=== PATIENT | female | born 1980 | race Caucasian/White ===

== ENCOUNTER → 2018-06-10 | Outpatient (CLI) | payer MEDICARE, OTHER | END | disposition home or self-care (01) | LOC: VAS 10:14 | DX: R22.31 Localized swelling, mass and lump, right upper limb (principal) | CPT/HCPCS: 93971 ==

== ENCOUNTER 2018-11-15 15:13 | Inpatient (IN) | payer MEDICARE, OTHER ==
[2018-11-15 18:52] LABS: WHITE BLOOD COUNT 2.1 10^3/ul (4.8-10.8)
[2018-11-15 18:52] LABS: ABNORMAL IP MESSAGE 1; HEMATOCRIT 23.5 % (37.0-47.0); HEMOGLOBIN 7.5 g/dl (12.0-16.0); MEAN CORPUSCULAR HEMOGLOBIN 29.4 pg (29.0-33.0); MEAN CORPUSCULAR HGB CONC 31.9 g/dl (32.0-37.0); MEAN CORPUSCULAR VOLUME 92.2 fl (82.0-101.0); NUCLEATED RED BLOOD CELLS% 1.4 /100WBC (0.0-0.0); PLATELET COUNT 54 10^3/UL (140-415); RED BLOOD COUNT 2.55 10^6/ul (4.20-5.40); RED CELL DISTRIBUTION WIDTH 15.1 % (11.5-14.5)
[2018-11-15 19:01] LABS: ADD MAN DIFF? YES; POSITIVE DIFF @See below
[2018-11-15] MEDS: AZITHROMYCIN 500MG/NS (PMX) 250 ML IVPB ×2 (19:03→23:59)
[2018-11-15] MEDS: CEFTRIAXONE 1 GM/50 ML (PMX) 50 ML IVPB (19:03)
[2018-11-15] MEDS: IBUPROFEN 600 MG TAB PO (19:03)
[2018-11-15] MEDS: SODIUM CHLORIDE 0.9% 1L BAG IV* (19:04)
[2018-11-15 19:11] LABS: ALANINE AMINOTRANSFERASE 32 IU/L (13-69); ALBUMIN 3.3 g/dl (3.3-4.9); ALBUMIN/GLOBULIN RATIO 1.06; ALKALINE PHOSPHATASE 49 IU/L (42-121); ANION GAP 11 (5-13); ASPARTATE AMINO TRANSFERASE 31 IU/L (15-46); BILIRUBIN,INDIRECT 0.2 mg/dl (0-1.1); BILIRUBIN,TOTAL 0.2 mg/dl (0.2-1.3); BLOOD UREA NITROGEN 20 mg/dl (7-20); CARBON DIOXIDE 26 mmol/L (21-31); CHLORIDE 104 mmol/L (97-110); CREATININE 1.68 mg/dl (0.44-1.00); Estimated GFR 34 mL/min (>60); GLUCOSE 112 mg/dl (70-220); LIPASE 75 U/L (23-300); SODIUM 141 mmol/L (135-144); TOTAL PROTEIN 6.4 g/dl (6.1-8.1)
[2018-11-15 19:12] LABS: INR 1.28; POTASSIUM 2.9 mmol/L (3.5-5.1); PROTIME 16.1 Sec (11.9-14.9); PT RATIO 1.3
[2018-11-15 19:13] LABS: PARTIAL THROMBOPLASTIN TIME 45.4 Sec (23.0-35.0)
[2018-11-15 19:22] LABS: TROPONIN-I 0.022 ng/ml (0.000-0.120)
[2018-11-15 19:46] LABS: ANISOCYTOSIS 1+ (0-0); ERYTHROBLAST% (NRBC) (M) 3 % (0-0); GIANT THROMBO% (M) 8 % (0-0); LYMPHOCYTES #M 1.4 10^3/ul (0.8-2.9); LYMPHOCYTES % (M) 69 % (15-51); MICROCYTOSIS 1+ (0-0); PLATELET ESTIMATE DECREASED; POIKILOCYTOSIS 1+ (0-0); POLYCHROMASIA 3+ (0-0); SEGMENTED NEUTROPHILS (M) % 31 % (39-77); SMUDGE%M 5 % (0-0)
[2018-11-15 20:59] LABS: ADD UMIC NO; UR ASCORBIC ACID NEGATIVE (NEGATIVE); UR BACTERIA FEW /HPF (NONE SEEN); UR BILIRUBIN (Dip) NEGATIVE (NEGATIVE); UR BLOOD (Dip) NEGATIVE (NEGATIVE); UR CLARITY SLIGHTLY CLOUDY (CLEAR); UR COLOR AMBER (YELLOW); UR GLUCOSE (Dip) NEGATIVE (NEGATIVE); UR KETONES (Dip) NEGATIVE (NEGATIVE); UR LEUKOCYTE ESTERASE (Dip) NEGATIVE Leu/ul (NEGATIVE); UR NITRITE (Dip) NEGATIVE (NEGATIVE); UR RBC 1 /HPF (0-5); UR SPECIFIC GRAVITY (Dip) 1.015 (1.003-1.030); UR SQUAMOUS EPITHELIAL CELL FEW /HPF (FEW); UR TOTAL PROTEIN (Dip) NEGATIVE (NEGATIVE); UR UROBILINOGEN (Dip) NEGATIVE (NEGATIVE); UR WBC 6 /HPF (0-5)
[2018-11-15] MEDS: POTASSIUM CHLORIDE 100 ML IVPB (21:25)
[2018-11-15 22:04] LABS: LACTIC ACID 1.2 mmol/L (0.5-2.0)
[2018-11-15] MEDS ORDERED: DEXTROMETHORPHAN POLISTIREX PO (22:30)
[2018-11-15] MEDS: ENALAPRIL 2.5 MG TAB PO (23:35)
[2018-11-16] MEDS: POTASSIUM CHLORIDE 100 ML IVPB ×2 (01:46→03:58)
[2018-11-16] MEDS: PANTOPRAZOLE (EC) 40 MG TAB PO (05:05)
[2018-11-16 06:41] LABS: ADD MAN DIFF? NO
[2018-11-16 06:43] LABS: WHITE BLOOD COUNT 2.3 10^3/ul (4.8-10.8)
[2018-11-16 06:43] LABS: ABNORMAL IP MESSAGE 1; EOSINOPHILS # 0.1 10^3/ul (0.0-0.5); EOSINOPHILS % 5.1 % (0.0-7.0); HEMATOCRIT 22.7 % (37.0-47.0); HEMOGLOBIN 7.4 g/dl (12.0-16.0); LYMPHOCYTES % 43.6 % (15.0-51.0); MEAN CORPUSCULAR HEMOGLOBIN 30.1 pg (29.0-33.0); MEAN CORPUSCULAR HGB CONC 32.6 g/dl (32.0-37.0); MEAN CORPUSCULAR VOLUME 92.3 fl (82.0-101.0); MEAN PLATELET VOLUME 12.8 fl (7.4-10.4); MONOCYTE # 0.2 10^3/ul (0.3-0.9); MONOCYTES % 6.8 % (0.0-11.0); NEUTROPHILS % 43.2 % (39.0-77.0); NUCLEATED RED BLOOD CELLS% 1.7 /100WBC (0.0-0.0); RED BLOOD COUNT 2.46 10^6/ul (4.20-5.40)
[2018-11-16 06:48] LABS: POSITIVE DIFF @See below
[2018-11-16 06:49] LABS: PLATELET COUNT 47 10^3/UL (140-415)
[2018-11-16 07:04] LABS: INR 1.24; PROTIME 15.7 Sec (11.9-14.9); PT RATIO 1.2
[2018-11-16 07:04] LABS: LACTIC ACID 1.4 mmol/L (0.5-2.0)
[2018-11-16 07:06] LABS: IRON 26 ug/dl (35-150)
[2018-11-16 07:13] LABS: ALANINE AMINOTRANSFERASE 33 IU/L (13-69); ALBUMIN 2.8 g/dl (3.3-4.9); ALBUMIN/GLOBULIN RATIO 0.93; ALKALINE PHOSPHATASE 46 IU/L (42-121); ANION GAP 8 (5-13); ASPARTATE AMINO TRANSFERASE 29 IU/L (15-46); BLOOD UREA NITROGEN 19 mg/dl (7-20); CALCIUM 8.5 mg/dl (8.4-10.2); CARBON DIOXIDE 27 mmol/L (21-31); CHLORIDE 108 mmol/L (97-110); Estimated GFR 28 mL/min (>60); GLUCOSE 90 mg/dl (70-220); MAGNESIUM 1.3 mg/dl (1.7-2.5); POTASSIUM 3.2 mmol/L (3.5-5.1); SODIUM 143 mmol/L (135-144); TOTAL PROTEIN 5.8 g/dl (6.1-8.1)
[2018-11-16 07:14] LABS: B-TYPE NATRIURETIC PEPTIDE 19600 PG/ML (0-125)
[2018-11-16 07:15] LABS: % IRON SATURATION 12 % SAT (22-52); TOTAL IRON BINDING CAPACITY 212 ug/dl (241-421)
[2018-11-16] MEDS: POTASSIUM CHLORIDE (SR) 8 MEQ CAP PO (08:58)
[2018-11-16] MEDS: POLYETHYLENE GLYCOL 17 GM PACKET PO (09:00)
[2018-11-16] MEDS: LORATADINE 10 MG TAB PO (09:00)
[2018-11-16] MEDS: TRIAMTERENE/HCTZ (37.5/25) TAB PO (09:00)
[2018-11-16 10:15] LABS: ADD UMIC YES; UR ASCORBIC ACID NEGATIVE (NEGATIVE); UR BACTERIA MODERATE /HPF (NONE SEEN); UR BILIRUBIN (Dip) NEGATIVE (NEGATIVE); UR BLOOD (Dip) NEGATIVE (NEGATIVE); UR CLARITY CLOUDY (CLEAR); UR COLOR AMBER (YELLOW); UR GLUCOSE (Dip) NEGATIVE (NEGATIVE); UR KETONES (Dip) NEGATIVE (NEGATIVE); UR LEUKOCYTE ESTERASE (Dip) 1+ Leu/ul (NEGATIVE); UR NITRITE (Dip) NEGATIVE (NEGATIVE); UR RBC 6 /HPF (0-5); UR SPECIFIC GRAVITY (Dip) 1.013 (1.003-1.030); UR SQUAMOUS EPITHELIAL CELL FEW /HPF (FEW); UR TOTAL PROTEIN (Dip) NEGATIVE (NEGATIVE); UR UROBILINOGEN (Dip) NEGATIVE (NEGATIVE); UR WBC 8 /HPF (0-5)
[2018-11-16 10:31] LABS: AMPHETAMINE/METHAMPHETAMINE Negative (NEGATIVE); BARBITURATES Negative (NEGATIVE); BENZODIAZEPINES Negative (NEGATIVE); CANNABINOIDS Negative (NEGATIVE); COCAINE Negative (NEGATIVE); OPIATES Negative (NEGATIVE)
[2018-11-16] MEDS: TAMOXIFEN 10 MG TAB PO (15:49)
[2018-11-16 16:27] LABS: OCCULT BLOOD STOOL NEGATIVE (NEGATIVE)
[2018-11-16] MEDS: MAGNESIUM SULFATE 4 GM/100 ML 100 ML IVPB (16:34)
[2018-11-16] MEDS: FUROSEMIDE 40 MG INJ IV (16:36)
[2018-11-16] MEDS: WARFARIN 1 MG TAB PO ×2 (17:00→18:44)
[2018-11-16 20:03] LABS: TROPONIN-I < 0.012 ng/ml (0.000-0.120)
[2018-11-16] MEDS: SENNA TAB PO (20:11)
[2018-11-16 21:57] LABS: IMMEDIATE SPIN CROSSMATCH 1 3
[2018-11-17 01:25] LABS: TROPONIN-I 0.018 ng/ml (0.000-0.120)
[2018-11-17] MEDS: PANTOPRAZOLE (EC) 40 MG TAB PO (05:11)
[2018-11-17 06:20] LABS: ADD MAN DIFF? NO
[2018-11-17 06:34] LABS: ABNORMAL IP MESSAGE 1; BASOPHILS % 0.4 % (0.0-2.0); EOSINOPHILS # 0.1 10^3/ul (0.0-0.5); EOSINOPHILS % 4.3 % (0.0-7.0); HEMATOCRIT 26.1 % (37.0-47.0); HEMOGLOBIN 8.5 g/dl (12.0-16.0); LYMPHOCYTES % 36.3 % (15.0-51.0); MEAN CORPUSCULAR HEMOGLOBIN 29.1 pg (29.0-33.0); MEAN CORPUSCULAR HGB CONC 32.6 g/dl (32.0-37.0); MEAN CORPUSCULAR VOLUME 89.4 fl (82.0-101.0); MEAN PLATELET VOLUME 12.3 fl (7.4-10.4); MONOCYTE # 0.3 10^3/ul (0.3-0.9); MONOCYTES % 11.2 % (0.0-11.0); NEUTROPHIL # 1.2 10^3/ul (1.6-7.5); NEUTROPHILS % 44.6 % (39.0-77.0); NUCLEATED RED BLOOD CELLS # 0.1 10^3/ul (0.0-0.0); NUCLEATED RED BLOOD CELLS% 2.9 /100WBC (0.0-0.0); PLATELET COUNT 57 10^3/UL (140-415); RED BLOOD COUNT 2.92 10^6/ul (4.20-5.40); RED CELL DISTRIBUTION WIDTH 16.9 % (11.5-14.5)
[2018-11-17 06:34] LABS: WHITE BLOOD COUNT 2.8 10^3/ul (4.8-10.8)
[2018-11-17 06:44] LABS: POSITIVE DIFF @See below
[2018-11-17 06:48] LABS: CHOL/HDL RATIO 3.1 RATIO; HDL CHOLESTEROL 29 mg/dl (34-82); LDL CHOLESTEROL,CALCULATED 42 mg/dl; TRIGLYCERIDES 106 mg/dl (0-149)
[2018-11-17 06:48] LABS: CHOLESTEROL 92 mg/dl (100-200)
[2018-11-17 06:59] LABS: ANION GAP 6 (5-13); BLOOD UREA NITROGEN 20 mg/dl (7-20); CALCIUM 8.5 mg/dl (8.4-10.2); CARBON DIOXIDE 26 mmol/L (21-31); CHLORIDE 109 mmol/L (97-110); CREATININE 2.11 mg/dl (0.44-1.00); Estimated GFR 27 mL/min (>60); GLUCOSE 83 mg/dl (70-220); POTASSIUM 3.4 mmol/L (3.5-5.1); SODIUM 141 mmol/L (135-144)
[2018-11-17] MEDS: POLYETHYLENE GLYCOL 17 GM PACKET PO (09:02)
[2018-11-17] MEDS: FUROSEMIDE 40 MG INJ IV (09:02)
[2018-11-17] MEDS: POTASSIUM CHLORIDE (SR) 8 MEQ CAP PO (09:03)
[2018-11-17] MEDS: LORATADINE 10 MG TAB PO (09:03)
[2018-11-17] MEDS: APIXABAN 5 MG TABLET PO ×2 (09:03→20:34)
[2018-11-17] MEDS: TAMOXIFEN 10 MG TAB PO (09:19)
[2018-11-17] MEDS: TRIAMTERENE/HCTZ (37.5/25) TAB PO (10:49)
[2018-11-17 10:50] LABS: AADO2 Arterial 44.3 mmHg (7.0-24.0); Allen Test ACCEPTAB; Arterial Base Excess -1.3 mmol/L (-3.0-3); Arterial Blood Gas Oxygen Sat 90.3 mmHG (95.0-98.0); Arterial COHb 0.3 % (0.0-3.0); Arterial Fraction of Oxyhgb 89.8 % (93.0-99.0); Arterial HCO3 23.2 mmol/L (22.0-26.0); Arterial MetHb 0.3 % (0.0-1.5); Arterial pCO2 37.8 mmhg (35-45); MODE ROOM AIR; Site Left Radial
[2018-11-17] MEDS ORDERED: VANCOMYCIN IV PER PHARMACY XX (12:30)
[2018-11-17] MEDS: CEFEPIME 1GM/50 ML (PMX) 50 ML IVPB ×2 (13:10→20:32)
[2018-11-17] MEDS ORDERED: LIDOCAINE 1% (MDV) 20 ML INJ (14:04)
[2018-11-17] MEDS: VANCOMYCIN HCL 2 GM in SOD CHLORIDE 0.9% 500 ML IVPB (15:31)
[2018-11-17] MEDS: POTASSIUM CHLORIDE 20 MEQ POWDER FOR ORAL SOLN PO (16:54)
[2018-11-17] MEDS: GUAIFENESIN 20 MG/ML 5ML CUP PO (17:50)
[2018-11-17] MEDS: SENNA TAB PO (20:33)
[2018-11-17] MEDS: ALBUTEROL/IPRATROPIUM (NEB) 3 ML AMP HHN (23:27)
[2018-11-17] MEDS: ACETYLCYSTEINE 20% 4 ML VIAL NEB (23:27)
[2018-11-18] MEDS: GUAIFENESIN 20 MG/ML 5ML CUP PO ×2 (00:58→16:29)
[2018-11-18] MEDS: VANCOMYCIN HCL 1.5 GM in SOD CHLORIDE 0.9% 250 ML IVPB (04:10)
[2018-11-18] MEDS: PANTOPRAZOLE (EC) 40 MG TAB PO (05:46)
[2018-11-18 06:11] LABS: ABNORMAL IP MESSAGE 1; HEMATOCRIT 29.5 % (37.0-47.0); HEMOGLOBIN 9.8 g/dl (12.0-16.0); MEAN CORPUSCULAR HEMOGLOBIN 29.3 pg (29.0-33.0); MEAN CORPUSCULAR HGB CONC 33.2 g/dl (32.0-37.0); MEAN CORPUSCULAR VOLUME 88.1 fl (82.0-101.0); MEAN PLATELET VOLUME 11.2 fl (7.4-10.4); NUCLEATED RED BLOOD CELLS% 2.1 /100WBC (0.0-0.0); RED BLOOD COUNT 3.35 10^6/ul (4.20-5.40); RED CELL DISTRIBUTION WIDTH 16.9 % (11.5-14.5)
[2018-11-18 06:11] LABS: WHITE BLOOD COUNT 3.8 10^3/ul (4.8-10.8)
[2018-11-18 06:27] LABS: ADD MAN DIFF? YES; PLATELET COUNT 98 10^3/UL (140-415); POSITIVE DIFF @See below
[2018-11-18 06:49] LABS: IRON 57 ug/dl (35-150)
[2018-11-18 06:54] LABS: ALANINE AMINOTRANSFERASE 33 IU/L (13-69); ALBUMIN 2.7 g/dl (3.3-4.9); ALKALINE PHOSPHATASE 51 IU/L (42-121); ANION GAP 1 (5-13); ASPARTATE AMINO TRANSFERASE 45 IU/L (15-46); BILIRUBIN,INDIRECT 0.5 mg/dl (0-1.1); BILIRUBIN,TOTAL 0.5 mg/dl (0.2-1.3); BLOOD UREA NITROGEN 17 mg/dl (7-20); CALCIUM 8.5 mg/dl (8.4-10.2); CARBON DIOXIDE 26 mmol/L (21-31); CHLORIDE 115 mmol/L (97-110); CREATININE 1.74 mg/dl (0.44-1.00); Estimated GFR 33 mL/min (>60); GLUCOSE 84 mg/dl (70-220); MAGNESIUM 1.7 mg/dl (1.7-2.5); POTASSIUM 3.9 mmol/L (3.5-5.1); SODIUM 142 mmol/L (135-144); TOTAL PROTEIN 5.7 g/dl (6.1-8.1)
[2018-11-18 06:58] LABS: % IRON SATURATION 27 % SAT (22-52); TOTAL IRON BINDING CAPACITY 208 ug/dl (241-421)
[2018-11-18] MEDS: ALBUTEROL/IPRATROPIUM (NEB) 3 ML AMP HHN ×2 (08:31→20:54)
[2018-11-18] MEDS: CEFEPIME 1GM/50 ML (PMX) 50 ML IVPB ×2 (08:46→20:26)
[2018-11-18] MEDS: LORATADINE 10 MG TAB PO (08:46)
[2018-11-18] MEDS: POLYETHYLENE GLYCOL 17 GM PACKET PO (08:47)
[2018-11-18] MEDS: APIXABAN 5 MG TABLET PO ×2 (08:47→20:26)
[2018-11-18] MEDS: FUROSEMIDE 40 MG INJ IV (08:47)
[2018-11-18] MEDS: POTASSIUM CHLORIDE (SR) 8 MEQ CAP PO (08:47)
[2018-11-18] MEDS: TAMOXIFEN 10 MG TAB PO (09:50)
[2018-11-18] MEDS: MAGNESIUM SULFATE 2 GM/50 ML 50 ML IVPB (12:03)
[2018-11-18] MEDS: TRIAMTERENE/HCTZ (37.5/25) TAB PO (12:52)
[2018-11-18] MEDS ORDERED: VANCOMYCIN HCL 1.5 GM in SOD CHLORIDE 0.9% 250 ML IVPB (14:00)
[2018-11-18] MEDS: SENNA TAB PO (20:27)
[2018-11-19] MEDS: VANCOMYCIN HCL 1.5 GM in SOD CHLORIDE 0.9% 250 ML IVPB (03:54)
[2018-11-19] MEDS: PANTOPRAZOLE (EC) 40 MG TAB PO (05:25)
[2018-11-19] MEDS: KETOCONAZOLE 2% 15 GM CR TOP ×2 (09:00→20:36)
[2018-11-19] MEDS: CEFEPIME 1GM/50 ML (PMX) 50 ML IVPB (09:04)
[2018-11-19] MEDS: FUROSEMIDE 40 MG INJ IV (09:04)
[2018-11-19] MEDS: TAMOXIFEN 10 MG TAB PO (09:06)
[2018-11-19] MEDS: POTASSIUM CHLORIDE (SR) 8 MEQ CAP PO (09:08)
[2018-11-19] MEDS: LORATADINE 10 MG TAB PO (09:08)
[2018-11-19] MEDS: APIXABAN 5 MG TABLET PO ×2 (09:08→20:36)
[2018-11-19] MEDS: POLYETHYLENE GLYCOL 17 GM PACKET PO (09:09)
[2018-11-19] MEDS: TRIAMTERENE/HCTZ (37.5/25) TAB PO (09:15)
[2018-11-19] MEDS: MAGNESIUM SULFATE 2 GM/50 ML 50 ML IVPB (09:16)
[2018-11-19] MEDS: ONDANSETRON 4 MG TAB PO (09:20)
[2018-11-19] MEDS: ALBUTEROL/IPRATROPIUM (NEB) 3 ML AMP HHN ×2 (09:22→19:56)
[2018-11-19 13:44] LABS: BLOOD UREA NITROGEN 16 mg/dl (7-20)
[2018-11-19 13:44] LABS: CREATININE 1.45 mg/dl (0.44-1.00)
[2018-11-19] MEDS: DOXYCYCLINE 100 MG in SOD CHLORIDE 0.9% 250 ML IVPB (15:36)
[2018-11-19] MEDS: SENNA TAB PO (20:36)
[2018-11-19] MEDS ORDERED: morphine 4 MG/ML VIAL IV (23:00)
[2018-11-19] MEDS: NITROGLYCERIN (SL) 0.4 MG TAB SL (23:25)
[2018-11-19] MEDS: ASPIRIN 81 MG TAB PO (23:26)
[2018-11-19] MEDS: ATORVASTATIN 40 MG TAB PO (23:26)
[2018-11-19 23:34] LABS: D-DIMER 3193.31 ng/ml (<460)
[2018-11-19 23:44] LABS: TROPONIN-I < 0.012 ng/ml (0.000-0.120)
[2018-11-20] MEDS ORDERED: PENDING SANTYL ORDER FOR WOUND CARE XX (01:00)
[2018-11-20] MEDS: PANTOPRAZOLE (EC) 40 MG TAB PO (06:29)
[2018-11-20 06:37] LABS: ADD MAN DIFF? NO
[2018-11-20 06:41] LABS: EOSINOPHILS # 0.1 10^3/ul (0.0-0.5); EOSINOPHILS % 0.9 % (0.0-7.0); HEMOGLOBIN 10.3 g/dl (12.0-16.0); LYMPHOCYTES # 0.9 10^3/ul (0.8-2.9); LYMPHOCYTES % 16.1 % (15.0-51.0); MEAN CORPUSCULAR HEMOGLOBIN 28.7 pg (29.0-33.0); MEAN CORPUSCULAR HGB CONC 32.2 g/dl (32.0-37.0); MEAN CORPUSCULAR VOLUME 89.1 fl (82.0-101.0); MEAN PLATELET VOLUME 11.5 fl (7.4-10.4); MONOCYTES % 19.1 % (0.0-11.0); NEUTROPHIL # 3.4 10^3/ul (1.6-7.5); NEUTROPHILS % 62.1 % (39.0-77.0); NUCLEATED RED BLOOD CELLS # 0.1 10^3/ul (0.0-0.0); NUCLEATED RED BLOOD CELLS% 2.2 /100WBC (0.0-0.0); PLATELET COUNT 255 10^3/UL (140-415); RED BLOOD COUNT 3.59 10^6/ul (4.20-5.40); RED CELL DISTRIBUTION WIDTH 16.4 % (11.5-14.5)
[2018-11-20 06:41] LABS: WHITE BLOOD COUNT 5.5 10^3/ul (4.8-10.8)
[2018-11-20 07:27] LABS: ALANINE AMINOTRANSFERASE 28 IU/L (13-69); ALBUMIN 2.8 g/dl (3.3-4.9); ALKALINE PHOSPHATASE 55 IU/L (42-121); ANION GAP 7 (5-13); ASPARTATE AMINO TRANSFERASE 40 IU/L (15-46); BILIRUBIN,INDIRECT 0.7 mg/dl (0-1.1); BILIRUBIN,TOTAL 0.7 mg/dl (0.2-1.3); BLOOD UREA NITROGEN 16 mg/dl (7-20); CALCIUM 9.2 mg/dl (8.4-10.2); CARBON DIOXIDE 27 mmol/L (21-31); CHLORIDE 103 mmol/L (97-110); CREATININE 1.37 mg/dl (0.44-1.00); Estimated GFR 44 mL/min (>60); GLUCOSE 75 mg/dl (70-220); POTASSIUM 4.2 mmol/L (3.5-5.1); SODIUM 137 mmol/L (135-144); TOTAL PROTEIN 5.6 g/dl (6.1-8.1)
[2018-11-20 07:33] LABS: TROPONIN-I < 0.012 ng/ml (0.000-0.120)
[2018-11-20] MEDS: ALBUTEROL/IPRATROPIUM (NEB) 3 ML AMP HHN ×2 (08:03→20:36)
[2018-11-20] MEDS: FUROSEMIDE 40 MG INJ IV ×2 (09:00→09:23)
[2018-11-20] MEDS: DOXYCYCLINE 100 MG in SOD CHLORIDE 0.9% 250 ML IVPB ×4 (09:00→23:34)
[2018-11-20] MEDS: LORATADINE 10 MG TAB PO (09:15)
[2018-11-20] MEDS: KETOCONAZOLE 2% 15 GM CR TOP ×2 (09:15→20:16)
[2018-11-20] MEDS: POLYETHYLENE GLYCOL 17 GM PACKET PO (09:15)
[2018-11-20] MEDS: APIXABAN 5 MG TABLET PO ×2 (09:16→20:14)
[2018-11-20] MEDS: ASPIRIN 81 MG TAB PO (09:16)
[2018-11-20] MEDS: TAMOXIFEN 10 MG TAB PO (09:17)
[2018-11-20] MEDS: TRIAMTERENE/HCTZ (37.5/25) TAB PO (09:18)
[2018-11-20] MEDS: POTASSIUM CHLORIDE (SR) 8 MEQ CAP PO (09:18)
[2018-11-20 11:34] LABS: TROPONIN-I < 0.012 ng/ml (0.000-0.120)
[2018-11-20] MEDS: GUAIFENESIN 20 MG/ML 5ML CUP PO (20:14)
[2018-11-20] MEDS: SENNA TAB PO (20:15)
[2018-11-20] MEDS: ATORVASTATIN 40 MG TAB PO (20:15)
[2018-11-20] MEDS: DICLOFENAC SODIUM 1% GEL 100 GM TUBE TP (20:16)
[2018-11-21] MEDS: PANTOPRAZOLE (EC) 40 MG TAB PO (06:21)
[2018-11-21] MEDS: GUAIFENESIN 20 MG/ML 5ML CUP PO ×2 (06:26→20:48)
[2018-11-21] MEDS: ALBUTEROL/IPRATROPIUM (NEB) 3 ML AMP HHN ×2 (07:45→20:00)
[2018-11-21] MEDS: DOXYCYCLINE 100 MG in SOD CHLORIDE 0.9% 250 ML IVPB ×2 (08:55→20:41)
[2018-11-21] MEDS: ASPIRIN 81 MG TAB PO (08:55)
[2018-11-21] MEDS: LORATADINE 10 MG TAB PO (08:55)
[2018-11-21] MEDS: APIXABAN 5 MG TABLET PO ×2 (08:56→20:38)
[2018-11-21] MEDS: POLYETHYLENE GLYCOL 17 GM PACKET PO (08:56)
[2018-11-21] MEDS: POTASSIUM CHLORIDE (SR) 8 MEQ CAP PO (08:56)
[2018-11-21] MEDS: TRIAMTERENE/HCTZ (37.5/25) TAB PO (08:58)
[2018-11-21] MEDS: TAMOXIFEN 10 MG TAB PO (09:08)
[2018-11-21] MEDS: KETOCONAZOLE 2% 15 GM CR TOP ×2 (09:13→20:39)
[2018-11-21] MEDS: DICLOFENAC SODIUM 1% GEL 100 GM TUBE TP ×2 (09:13→20:39)
[2018-11-21] MEDS: ONDANSETRON INJ 8 MG in DEXTROSE 5% 50 ML IV (19:02)
[2018-11-21] MEDS: ATORVASTATIN 40 MG TAB PO (20:37)
[2018-11-21] MEDS: SENNA TAB PO (20:37)
[2018-11-22] MEDS: PANTOPRAZOLE (EC) 40 MG TAB PO (05:17)
[2018-11-22] MEDS: GUAIFENESIN 20 MG/ML 5ML CUP PO (05:21)
[2018-11-22] MEDS: ACETAMINOPHEN 325 MG TAB PO (05:21)
[2018-11-22] MEDS: ALBUTEROL/IPRATROPIUM (NEB) 3 ML AMP HHN ×3 (09:22→22:30)
[2018-11-22] MEDS: DOXYCYCLINE 100 MG in SOD CHLORIDE 0.9% 250 ML IVPB (09:29)
[2018-11-22] MEDS: APIXABAN 5 MG TABLET PO ×2 (09:30→20:26)
[2018-11-22] MEDS: TRIAMTERENE/HCTZ (37.5/25) TAB PO (09:32)
[2018-11-22] MEDS: POLYETHYLENE GLYCOL 17 GM PACKET PO (09:32)
[2018-11-22] MEDS: POTASSIUM CHLORIDE (SR) 8 MEQ CAP PO (09:32)
[2018-11-22] MEDS: LORATADINE 10 MG TAB PO (09:33)
[2018-11-22] MEDS: KETOCONAZOLE 2% 15 GM CR TOP ×2 (09:37→20:27)
[2018-11-22] MEDS: BALSAM PERU/CASTOR OIL 60 GM TUBE TOP (09:37)
[2018-11-22] MEDS: DICLOFENAC SODIUM 1% GEL 100 GM TUBE TP ×2 (09:38→20:26)
[2018-11-22] MEDS: TAMOXIFEN 10 MG TAB PO (09:48)
[2018-11-22] MEDS: SENNA TAB PO (20:26)
[2018-11-22] MEDS: ATORVASTATIN 40 MG TAB PO (20:26)
[2018-11-22] MEDS: DOXYCYCLINE 100 MG TAB PO (22:47)
[2018-11-23] MEDS: PANTOPRAZOLE (EC) 40 MG TAB PO (05:16)
[2018-11-23] MEDS: ALBUTEROL/IPRATROPIUM (NEB) 3 ML AMP HHN ×5 (08:00→23:30)
[2018-11-23] MEDS: DOXYCYCLINE 100 MG TAB PO ×2 (08:55→20:41)
[2018-11-23] MEDS: POLYETHYLENE GLYCOL 17 GM PACKET PO (08:55)
[2018-11-23] MEDS: POTASSIUM CHLORIDE (SR) 8 MEQ CAP PO (08:57)
[2018-11-23] MEDS: TRIAMTERENE/HCTZ (37.5/25) TAB PO (08:58)
[2018-11-23] MEDS: APIXABAN 5 MG TABLET PO ×2 (08:58→20:41)
[2018-11-23] MEDS: LORATADINE 10 MG TAB PO (08:58)
[2018-11-23] MEDS: KETOCONAZOLE 2% 15 GM CR TOP ×2 (08:59→20:54)
[2018-11-23] MEDS: BALSAM PERU/CASTOR OIL 60 GM TUBE TOP (08:59)
[2018-11-23] MEDS: DICLOFENAC SODIUM 1% GEL 100 GM TUBE TP ×2 (08:59→20:54)
[2018-11-23] MEDS: TAMOXIFEN 10 MG TAB PO (09:29)
[2018-11-23] MEDS: SENNA TAB PO (20:40)
[2018-11-23] MEDS: ATORVASTATIN 40 MG TAB PO (20:41)
[2018-11-23 23:23] LABS: AADO2 Arterial 13.3 mmHg (7.0-24.0); Allen Test ACCEPTAB; Arterial Base Excess 0.4 mmol/L (-3.0-3); Arterial Blood Gas Oxygen Sat 97.3 mmHG (95.0-98.0); Arterial COHb 0.3 % (0.0-3.0); Arterial Fraction of Oxyhgb 96.8 % (93.0-99.0); Arterial HCO3 23.8 mmol/L (22.0-26.0); Arterial MetHb 0.2 % (0.0-1.5); Arterial pCO2 33.9 mmhg (35-45); MODE ROOM AIR; Site Left Radial
[2018-11-24] MEDS: PANTOPRAZOLE (EC) 40 MG TAB PO (05:54)
[2018-11-24] MEDS: ALBUTEROL/IPRATROPIUM (NEB) 3 ML AMP HHN ×4 (08:31→20:00)
[2018-11-24] MEDS: DOXYCYCLINE 100 MG TAB PO (08:47)
[2018-11-24] MEDS: APIXABAN 5 MG TABLET PO (08:47)
[2018-11-24] MEDS: TAMOXIFEN 10 MG TAB PO (08:50)
[2018-11-24] MEDS: FUROSEMIDE 20 MG TAB PO (08:52)
[2018-11-24] MEDS: LORATADINE 10 MG TAB PO (08:52)
[2018-11-24] MEDS: POTASSIUM CHLORIDE (SR) 8 MEQ CAP PO (08:52)
[2018-11-24] MEDS: KETOCONAZOLE 2% 15 GM CR TOP (08:53)
[2018-11-24] MEDS: BALSAM PERU/CASTOR OIL 60 GM TUBE TOP (08:53)
[2018-11-24] MEDS: POLYETHYLENE GLYCOL 17 GM PACKET PO (08:53)
[2018-11-24] MEDS: DICLOFENAC SODIUM 1% GEL 100 GM TUBE TP (08:53)
[2018-11-24] MEDS: TRIAMTERENE/HCTZ (37.5/25) TAB PO (08:53)
== END 2018-11-24 17:00 | DRG 853 ==
LOC: E/R 15:13 → TEL 11-16 13:31
PROC: 30233N1 Transfusion of Nonautologous Red Blood Cells into Peripheral Vein, Percutaneous Approach (ICD-10-PCS; 2018-11-16)
PROC: 06H03DZ Insertion of Intraluminal Device into Inferior Vena Cava, Percutaneous Approach (ICD-10-PCS; principal; 2018-11-17)
DX: A41.9 Sepsis, unspecified organism (principal); D61.810 Antineoplastic chemotherapy induced pancytopenia; J18.9 Pneumonia, unspecified organism; I50.43 Acute on chronic combined systolic (congestive) and diastolic (congestive) heart failure; T80.211A Bloodstream infection due to central venous catheter, initial encounter; Z68.42 Body mass index [BMI] 45.0-49.9, adult; D62 Acute posthemorrhagic anemia; L03.116 Cellulitis of left lower limb; L03.115 Cellulitis of right lower limb; E66.2 Morbid (severe) obesity with alveolar hypoventilation; I82.431 Acute embolism and thrombosis of right popliteal vein; I82.411 Acute embolism and thrombosis of right femoral vein; I82.442 Acute embolism and thrombosis of left tibial vein; N17.9 Acute kidney failure, unspecified; I13.0 Hypertensive heart and chronic kidney disease with heart failure and stage 1 through stage 4 chronic kidney disease, or unspecified chronic kidney disease; C79.9 Secondary malignant neoplasm of unspecified site; C50.919 Malignant neoplasm of unspecified site of unspecified female breast; Z90.11 Acquired absence of right breast and nipple; J45.909 Unspecified asthma, uncomplicated; R62.50 Unspecified lack of expected normal physiological development in childhood; D63.8 Anemia in other chronic diseases classified elsewhere; H02.402 Unspecified ptosis of left eyelid; Z91.14 Patient's other noncompliance with medication regimen; J06.9 Acute upper respiratory infection, unspecified; B35.1 Tinea unguium; G93.89 Other specified disorders of brain; N18.9 Chronic kidney disease, unspecified; Z79.02 Long term (current) use of antithrombotics/antiplatelets
CPT/HCPCS: 36430; 36600; 70450; 70552; 71045; 73030; 75940; 80048; 80053; 80061; 80307; 81001; 81003; 82270; 82565; 82803; 83540; 83605; 83690; 83735; 83880; 84443; 84484; 84520; 85025; 85378; 85610; 85730; 86850; 86900; 86901; 86920; 87040; 87081; 87086; 87400; 93005; 93306; 93970; 94640; 94664; 95819; 96365; 96368; 97110; 97116; 97162; 97530; 99291-25

== ENCOUNTER 2018-12-20 16:15 | Inpatient (IN) | payer MEDICARE, OTHER ==
[2018-12-20 17:46] LABS: WHITE BLOOD COUNT 4.6 10^3/ul (4.8-10.8)
[2018-12-20 17:46] LABS: ABNORMAL IP MESSAGE 1; HEMATOCRIT 27.5 % (37.0-47.0); HEMOGLOBIN 8.9 g/dl (12.0-16.0); MEAN CORPUSCULAR HEMOGLOBIN 30.1 pg (29.0-33.0); MEAN CORPUSCULAR HGB CONC 32.4 g/dl (32.0-37.0); MEAN CORPUSCULAR VOLUME 92.9 fl (82.0-101.0); MEAN PLATELET VOLUME 12.3 fl (7.4-10.4); NUCLEATED RED BLOOD CELLS% 0.7 /100WBC (0.0-0.0); PLATELET COUNT 93 10^3/UL (140-415); RED BLOOD COUNT 2.96 10^6/ul (4.20-5.40); RED CELL DISTRIBUTION WIDTH 18.9 % (11.5-14.5)
[2018-12-20 17:56] LABS: ADD MAN DIFF? YES; POSITIVE DIFF @See below
[2018-12-20 18:10] LABS: ANION GAP 6 (5-13); BLOOD UREA NITROGEN 15 mg/dl (7-20); CALCIUM 9.1 mg/dl (8.4-10.2); CARBON DIOXIDE 28 mmol/L (21-31); CHLORIDE 107 mmol/L (97-110); CREATININE 1.05 mg/dl (0.44-1.00); Estimated GFR 59 mL/min (>60); GLUCOSE 101 mg/dl (70-220); POTASSIUM 3.5 mmol/L (3.5-5.1); SODIUM 141 mmol/L (135-144)
[2018-12-20 18:20] LABS: B-TYPE NATRIURETIC PEPTIDE 17900 PG/ML (0-125); TROPONIN-I < 0.012 ng/ml (0.000-0.120)
[2018-12-20 18:25] LABS: ETHANOL < 10.0 mg/dl (0-0)
[2018-12-20 18:27] LABS: INR 1.99; PROTIME 22.7 Sec (11.9-14.9); PT RATIO 1.8
[2018-12-20 19:13] LABS: PARTIAL THROMBOPLASTIN TIME 108.5 Sec (23.0-35.0)
[2018-12-20 19:37] LABS: ANISOCYTOSIS 1+ (0-0); BURR CELLS 1+ (0-0); EOSINOPHILS % (M) 2 % (0-7); ERYTHROBLAST% (NRBC) (M) 1 % (0-0); GIANT THROMBO% (M) 1 % (0-0); LYMPHOCYTES #M 0.6 10^3/ul (0.8-2.9); LYMPHOCYTES % (M) 14 % (15-51); MICROCYTOSIS 1+ (0-0); MONOCYTES % (M) 2 % (0-11); OVALOCYTES 1+ (0-0); PLATELET ESTIMATE DECREASED; POIKILOCYTOSIS 1+ (0-0); SEGMENTED NEUTROPHILS (M) % 82 % (39-77); SMUDGE%M 3 % (0-0)
[2018-12-20] MEDS: ENOXAPARIN 60 MG/0.6 ML SYG SC (19:44)
[2018-12-20] MEDS: FUROSEMIDE 20 MG INJ IV (19:47)
[2018-12-20 20:06] LABS: PARTIAL THROMBOPLASTIN TIME 38.6 Sec (23.0-35.0)
[2018-12-20 20:07] LABS: MAGNESIUM 1.5 mg/dl (1.7-2.5)
[2018-12-20 21:11] LABS: DIGOXIN < 0.4 ng/ml (1.0-2.0)
[2018-12-20] MEDS ORDERED: FUROSEMIDE 40 MG INJ IV (22:00)
[2018-12-20] MEDS ORDERED: ACETAMINOPHEN 325 MG TAB PO (22:30)
[2018-12-20] MEDS ORDERED: NITROGLYCERIN (SL) 0.4 MG TAB SL (22:30)
[2018-12-21] MEDS: SPIRONOLACTONE 25 MG TAB PO ×3 (01:37→17:09)
[2018-12-21] MEDS: FUROSEMIDE 20 MG TAB PO (01:37)
[2018-12-21] MEDS: FUROSEMIDE 40 MG TAB PO ×2 (05:58→13:44)
[2018-12-21 07:02] LABS: ADD MAN DIFF? NO
[2018-12-21 07:13] LABS: WHITE BLOOD COUNT 5.4 10^3/ul (4.8-10.8)
[2018-12-21 07:13] LABS: ABNORMAL IP MESSAGE 1; HEMATOCRIT 25.6 % (37.0-47.0); HEMOGLOBIN 8.2 g/dl (12.0-16.0); LYMPHOCYTES # 0.9 10^3/ul (0.8-2.9); MEAN CORPUSCULAR HEMOGLOBIN 29.7 pg (29.0-33.0); MEAN CORPUSCULAR VOLUME 92.8 fl (82.0-101.0); MEAN PLATELET VOLUME 11.6 fl (7.4-10.4); MONOCYTE # 0.3 10^3/ul (0.3-0.9); MONOCYTES % 5.2 % (0.0-11.0); NEUTROPHIL # 4.2 10^3/ul (1.6-7.5); NEUTROPHILS % 77.5 % (39.0-77.0); NUCLEATED RED BLOOD CELLS% 0.7 /100WBC (0.0-0.0); PLATELET COUNT 95 10^3/UL (140-415); RED BLOOD COUNT 2.76 10^6/ul (4.20-5.40); RED CELL DISTRIBUTION WIDTH 18.6 % (11.5-14.5)
[2018-12-21 07:22] LABS: POSITIVE DIFF @See below
[2018-12-21 07:41] LABS: ALANINE AMINOTRANSFERASE 26 IU/L (13-69); ALBUMIN 2.7 g/dl (3.3-4.9); ALKALINE PHOSPHATASE 46 IU/L (42-121); ANION GAP 9 (5-13); ASPARTATE AMINO TRANSFERASE 55 IU/L (15-46); BILIRUBIN,INDIRECT 0.6 mg/dl (0-1.1); BILIRUBIN,TOTAL 0.6 mg/dl (0.2-1.3); BLOOD UREA NITROGEN 16 mg/dl (7-20); CALCIUM 8.7 mg/dl (8.4-10.2); CARBON DIOXIDE 25 mmol/L (21-31); CHLORIDE 109 mmol/L (97-110); CREATININE 1.06 mg/dl (0.44-1.00); Estimated GFR 59 mL/min (>60); GLUCOSE 102 mg/dl (70-220); POTASSIUM 3.7 mmol/L (3.5-5.1); SODIUM 143 mmol/L (135-144); TOTAL PROTEIN 5.7 g/dl (6.1-8.1)
[2018-12-21] MEDS: LORATADINE 10 MG TAB PO (08:45)
[2018-12-21] MEDS: ENOXAPARIN 80 MG/0.8 ML SYG SC (10:17)
[2018-12-21 18:43] LABS: TROPONIN-I 0.017 ng/ml (0.000-0.120)
[2018-12-21] MEDS: NYSTATIN 30 GM POWDER BTL TOP ×2 (21:00→21:52)
[2018-12-21] MEDS: BALSAM PERU/CASTOR OIL 60 GM TUBE TOP ×2 (21:00→21:52)
[2018-12-21] MEDS: SENNA TAB PO (21:52)
[2018-12-21] MEDS: ATORVASTATIN 40 MG TAB PO (21:52)
[2018-12-22] MEDS: FUROSEMIDE 40 MG INJ IV ×2 (05:56→17:46)
[2018-12-22] MEDS: SPIRONOLACTONE 25 MG TAB PO ×2 (05:57→17:46)
[2018-12-22 07:19] LABS: INR 1.31; PROTIME 16.4 Sec (11.9-14.9); PT RATIO 1.3
[2018-12-22 07:31] LABS: TROPONIN-I 0.017 ng/ml (0.000-0.120)
[2018-12-22] MEDS: BALSAM PERU/CASTOR OIL 60 GM TUBE TOP ×2 (09:18→20:46)
[2018-12-22] MEDS: NYSTATIN 30 GM POWDER BTL TOP ×2 (09:18→20:46)
[2018-12-22] MEDS: LORATADINE 10 MG TAB PO (09:19)
[2018-12-22] MEDS: BENAZEPRIL 5 MG TAB PO (09:19)
[2018-12-22] MEDS: ENOXAPARIN 80 MG/0.8 ML SYG SC (09:23)
[2018-12-22 19:18] LABS: CREATINE KINASE 28 IU/L (23-200)
[2018-12-22 19:31] LABS: CK INDEX 1.2; CK-MB 0.33 ng/ml (0.0-2.4); TROPONIN-I 0.012 ng/ml (0.000-0.120)
[2018-12-22] MEDS: SENNA TAB PO (20:45)
[2018-12-22] MEDS: ATORVASTATIN 40 MG TAB PO (20:46)
[2018-12-23] MEDS: SPIRONOLACTONE 25 MG TAB PO ×2 (06:41→18:26)
[2018-12-23] MEDS: FUROSEMIDE 40 MG INJ IV ×2 (06:42→18:26)
[2018-12-23 07:07] LABS: WHITE BLOOD COUNT 3.9 10^3/ul (4.8-10.8)
[2018-12-23 07:07] LABS: ABNORMAL IP MESSAGE 1; HEMATOCRIT 26.2 % (37.0-47.0); HEMOGLOBIN 8.5 g/dl (12.0-16.0); MEAN CORPUSCULAR HEMOGLOBIN 30.6 pg (29.0-33.0); MEAN CORPUSCULAR HGB CONC 32.4 g/dl (32.0-37.0); MEAN CORPUSCULAR VOLUME 94.2 fl (82.0-101.0); MEAN PLATELET VOLUME 11.4 fl (7.4-10.4); NUCLEATED RED BLOOD CELLS% 2.6 /100WBC (0.0-0.0); PLATELET COUNT 170 10^3/UL (140-415); RED BLOOD COUNT 2.78 10^6/ul (4.20-5.40); RED CELL DISTRIBUTION WIDTH 18.9 % (11.5-14.5)
[2018-12-23 07:11] LABS: ADD MAN DIFF? YES; POSITIVE DIFF @See below
[2018-12-23 07:27] LABS: CREATINE KINASE 21 IU/L (23-200)
[2018-12-23 07:35] LABS: CK-MB < 0.22 ng/ml (0.0-2.4); TROPONIN-I 0.013 ng/ml (0.000-0.120)
[2018-12-23 07:38] LABS: ALANINE AMINOTRANSFERASE 43 IU/L (13-69); ALBUMIN 2.4 g/dl (3.3-4.9); ALKALINE PHOSPHATASE 45 IU/L (42-121); ANION GAP 5 (5-13); ASPARTATE AMINO TRANSFERASE 79 IU/L (15-46); BILIRUBIN,INDIRECT 1.1 mg/dl (0-1.1); BILIRUBIN,TOTAL 1.1 mg/dl (0.2-1.3); BLOOD UREA NITROGEN 17 mg/dl (7-20); CALCIUM 8.5 mg/dl (8.4-10.2); CARBON DIOXIDE 31 mmol/L (21-31); CHLORIDE 107 mmol/L (97-110); CREATININE 1.02 mg/dl (0.44-1.00); Estimated GFR > 60 mL/min (>60); GLUCOSE 71 mg/dl (70-220); MAGNESIUM 1.3 mg/dl (1.7-2.5); PHOSPHORUS 3.9 mg/dl (2.5-4.9); POTASSIUM 3.4 mmol/L (3.5-5.1); SODIUM 143 mmol/L (135-144); TOTAL PROTEIN 5.4 g/dl (6.1-8.1)
[2018-12-23 07:40] LABS: CHOL/HDL RATIO 4.4 RATIO; HDL CHOLESTEROL 22 mg/dl (34-82); LDL CHOLESTEROL,CALCULATED 49 mg/dl; TRIGLYCERIDES 134 mg/dl (0-149)
[2018-12-23 07:40] LABS: CHOLESTEROL 98 mg/dl (100-200)
[2018-12-23] MEDS: BENAZEPRIL 5 MG TAB PO (08:36)
[2018-12-23] MEDS: LORATADINE 10 MG TAB PO (08:37)
[2018-12-23] MEDS: BALSAM PERU/CASTOR OIL 60 GM TUBE TOP ×2 (08:37→21:25)
[2018-12-23] MEDS: NYSTATIN 30 GM POWDER BTL TOP ×2 (08:37→21:25)
[2018-12-23] MEDS: ENOXAPARIN 80 MG/0.8 ML SYG SC (08:38)
[2018-12-23 09:50] LABS: ANISOCYTOSIS 1+ (0-0); EOSINOPHILS % (M) 6 % (0-7); ERYTHROBLAST% (NRBC) (M) 1 % (0-0); LYMPHOCYTES #M 2.4 10^3/ul (0.8-2.9); LYMPHOCYTES % (M) 63 % (15-51); METAMYELOCYTES %M 1 % (0-0); MONOCYTES % (M) 2 % (0-11); OVALOCYTES 1+ (0-0); PLATELET ESTIMATE NORMAL; POIKILOCYTOSIS 1+ (0-0); REACTIVE LYMPHOCYTES #M 0.5 10^3/ul (0.0-0.0); REACTIVE LYMPHOCYTES% (M) 13 % (0-0); SEGMENTED NEUTROPHILS (M) % 15 % (39-77); SMUDGE%M 46 % (0-0)
[2018-12-23] MEDS: SENNA TAB PO (21:00)
[2018-12-23] MEDS: ATORVASTATIN 40 MG TAB PO (21:24)
[2018-12-23] MEDS: POTASSIUM CHLORIDE (SR) 10 MEQ TAB PO (21:24)
[2018-12-24 05:47] LABS: PROTEIN, TOTAL 5.2 g/dL (6.1-8.1)
[2018-12-24] MEDS: SPIRONOLACTONE 25 MG TAB PO ×2 (06:27→18:19)
[2018-12-24] MEDS: FUROSEMIDE 40 MG INJ IV ×2 (06:27→18:19)
[2018-12-24 08:27] LABS: ADD MAN DIFF? NO
[2018-12-24 08:34] LABS: BASOPHILS % 0.2 % (0.0-2.0); EOSINOPHILS # 0.2 10^3/ul (0.0-0.5); EOSINOPHILS % 3.8 % (0.0-7.0); HEMATOCRIT 29.4 % (37.0-47.0); HEMOGLOBIN 9.3 g/dl (12.0-16.0); LYMPHOCYTES # 1.3 10^3/ul (0.8-2.9); LYMPHOCYTES % 29.4 % (15.0-51.0); MEAN CORPUSCULAR HEMOGLOBIN 30.2 pg (29.0-33.0); MEAN CORPUSCULAR HGB CONC 31.6 g/dl (32.0-37.0); MEAN CORPUSCULAR VOLUME 95.5 fl (82.0-101.0); MEAN PLATELET VOLUME 11.6 fl (7.4-10.4); MONOCYTE # 0.7 10^3/ul (0.3-0.9); MONOCYTES % 14.7 % (0.0-11.0); NEUTROPHIL # 2.1 10^3/ul (1.6-7.5); NEUTROPHILS % 48.1 % (39.0-77.0); NUCLEATED RED BLOOD CELLS # 0.1 10^3/ul (0.0-0.0); NUCLEATED RED BLOOD CELLS% 2.7 /100WBC (0.0-0.0); PLATELET COUNT 229 10^3/UL (140-415); RED BLOOD COUNT 3.08 10^6/ul (4.20-5.40); RED CELL DISTRIBUTION WIDTH 19.3 % (11.5-14.5)
[2018-12-24 08:34] LABS: WHITE BLOOD COUNT 4.4 10^3/ul (4.8-10.8)
[2018-12-24 08:56] LABS: ALANINE AMINOTRANSFERASE 41 IU/L (13-69); ALBUMIN 2.8 g/dl (3.3-4.9); ALBUMIN/GLOBULIN RATIO 0.87; ALKALINE PHOSPHATASE 57 IU/L (42-121); ANION GAP 6 (5-13); ASPARTATE AMINO TRANSFERASE 87 IU/L (15-46); BILIRUBIN,INDIRECT 1.4 mg/dl (0-1.1); BILIRUBIN,TOTAL 1.4 mg/dl (0.2-1.3); BLOOD UREA NITROGEN 15 mg/dl (7-20); CALCIUM 8.9 mg/dl (8.4-10.2); CARBON DIOXIDE 34 mmol/L (21-31); CHLORIDE 104 mmol/L (97-110); CREATININE 1.04 mg/dl (0.44-1.00); Estimated GFR 60 mL/min (>60); GLUCOSE 74 mg/dl (70-220); MAGNESIUM 1.2 mg/dl (1.7-2.5); PHOSPHORUS 3.9 mg/dl (2.5-4.9); POTASSIUM 3.1 mmol/L (3.5-5.1); SODIUM 144 mmol/L (135-144)
[2018-12-24] MEDS: LORATADINE 10 MG TAB PO (09:04)
[2018-12-24] MEDS: BENAZEPRIL 5 MG TAB PO (09:05)
[2018-12-24] MEDS: BALSAM PERU/CASTOR OIL 60 GM TUBE TOP ×2 (09:05→21:35)
[2018-12-24] MEDS: NYSTATIN 30 GM POWDER BTL TOP ×2 (09:05→21:36)
[2018-12-24] MEDS: ENOXAPARIN 80 MG/0.8 ML SYG SC (09:13)
[2018-12-24] MEDS: POTASSIUM CHLORIDE (SR) 20 MEQ TAB PO (14:46)
[2018-12-24 17:32] LABS: ALBUMIN 2.5 g/dL (3.8-4.8); ALPHA-1-GLOBULINS 0.4 g/dL (0.2-0.3); ALPHA-2-GLOBULINS 0.4 g/dL (0.5-0.9); BETA 2 GLOBULINS 0.3 g/dL (0.2-0.5); BETA GLOBULINS 0.3 g/dL (0.4-0.6); GAMMA GLOBULINS 1.3 g/dL (0.8-1.7)
[2018-12-24] MEDS: SENNA TAB PO (21:33)
[2018-12-24] MEDS: ATORVASTATIN 40 MG TAB PO (21:34)
[2018-12-25] MEDS: FUROSEMIDE 40 MG INJ IV ×2 (06:06→22:21)
[2018-12-25] MEDS: SPIRONOLACTONE 25 MG TAB PO ×2 (06:06→18:11)
[2018-12-25 08:10] LABS: ADD MAN DIFF? NO
[2018-12-25 08:21] LABS: WHITE BLOOD COUNT 4.2 10^3/ul (4.8-10.8)
[2018-12-25 08:21] LABS: EOSINOPHILS # 0.1 10^3/ul (0.0-0.5); EOSINOPHILS % 2.4 % (0.0-7.0); HEMATOCRIT 26.1 % (37.0-47.0); HEMOGLOBIN 8.5 g/dl (12.0-16.0); LYMPHOCYTES # 1.2 10^3/ul (0.8-2.9); LYMPHOCYTES % 29.2 % (15.0-51.0); MEAN CORPUSCULAR HEMOGLOBIN 30.5 pg (29.0-33.0); MEAN CORPUSCULAR HGB CONC 32.6 g/dl (32.0-37.0); MEAN CORPUSCULAR VOLUME 93.5 fl (82.0-101.0); MEAN PLATELET VOLUME 11.2 fl (7.4-10.4); MONOCYTE # 0.6 10^3/ul (0.3-0.9); MONOCYTES % 14.9 % (0.0-11.0); NEUTROPHIL # 2.1 10^3/ul (1.6-7.5); NEUTROPHILS % 51.6 % (39.0-77.0); NUCLEATED RED BLOOD CELLS # 0.1 10^3/ul (0.0-0.0); NUCLEATED RED BLOOD CELLS% 1.9 /100WBC (0.0-0.0); PLATELET COUNT 258 10^3/UL (140-415); RED BLOOD COUNT 2.79 10^6/ul (4.20-5.40); RED CELL DISTRIBUTION WIDTH 19.3 % (11.5-14.5)
[2018-12-25 08:35] LABS: ALANINE AMINOTRANSFERASE 39 IU/L (13-69); ALBUMIN 2.6 g/dl (3.3-4.9); ALBUMIN/GLOBULIN RATIO 0.86; ALKALINE PHOSPHATASE 44 IU/L (42-121); ANION GAP 6 (5-13); ASPARTATE AMINO TRANSFERASE 71 IU/L (15-46); BILIRUBIN,INDIRECT 1.4 mg/dl (0-1.1); BILIRUBIN,TOTAL 1.4 mg/dl (0.2-1.3); BLOOD UREA NITROGEN 14 mg/dl (7-20); CALCIUM 8.1 mg/dl (8.4-10.2); CARBON DIOXIDE 32 mmol/L (21-31); CHLORIDE 105 mmol/L (97-110); CREATININE 0.82 mg/dl (0.44-1.00); Estimated GFR > 60 mL/min (>60); GLUCOSE 78 mg/dl (70-220); POTASSIUM 3.6 mmol/L (3.5-5.1); SODIUM 143 mmol/L (135-144); TOTAL PROTEIN 5.6 g/dl (6.1-8.1)
[2018-12-25] MEDS: LORATADINE 10 MG TAB PO (09:11)
[2018-12-25] MEDS: BENAZEPRIL 5 MG TAB PO (09:12)
[2018-12-25] MEDS: BALSAM PERU/CASTOR OIL 60 GM TUBE TOP ×2 (09:12→21:54)
[2018-12-25] MEDS: NYSTATIN 30 GM POWDER BTL TOP ×2 (09:12→21:54)
[2018-12-25] MEDS: ENOXAPARIN 80 MG/0.8 ML SYG SC (09:19)
[2018-12-25] MEDS: ALBUTEROL/IPRATROPIUM (NEB) 3 ML AMP HHN ×2 (13:26→19:33)
[2018-12-25] MEDS: ONDANSETRON 4 MG TAB PO (18:11)
[2018-12-25] MEDS: ATORVASTATIN 40 MG TAB PO (21:52)
[2018-12-25] MEDS: METOLAZONE 2.5 MG TAB PO (21:53)
[2018-12-25] MEDS: KETOCONAZOLE 2% 15 GM CR TOP (21:54)
[2018-12-25] MEDS: SENNA TAB PO (21:56)
[2018-12-26] MEDS: SPIRONOLACTONE 25 MG TAB PO (06:29)
[2018-12-26] MEDS: FUROSEMIDE 40 MG INJ IV ×2 (06:30→14:58)
[2018-12-26] MEDS: ALBUTEROL/IPRATROPIUM (NEB) 3 ML AMP HHN ×2 (08:44→14:14)
[2018-12-26] MEDS: LORATADINE 10 MG TAB PO (09:30)
[2018-12-26] MEDS: METOLAZONE 2.5 MG TAB PO (09:30)
[2018-12-26] MEDS: BENAZEPRIL 5 MG TAB PO (09:30)
[2018-12-26] MEDS: BALSAM PERU/CASTOR OIL 60 GM TUBE TOP (09:31)
[2018-12-26] MEDS: NYSTATIN 30 GM POWDER BTL TOP (09:31)
[2018-12-26] MEDS: KETOCONAZOLE 2% 15 GM CR TOP (09:31)
[2018-12-26] MEDS: ENOXAPARIN 80 MG/0.8 ML SYG SC (09:35)
[2018-12-27] MEDS ORDERED: FUROSEMIDE 40 MG INJ IV (06:00)
== END 2018-12-26 16:38 | DRG 291 ==
LOC: E/R 16:15 → TEL 12-21 14:38
PROVIDERS: Family Medicine
DX: I13.0 Hypertensive heart and chronic kidney disease with heart failure and stage 1 through stage 4 chronic kidney disease, or unspecified chronic kidney disease (principal); I50.23 Acute on chronic systolic (congestive) heart failure; D61.810 Antineoplastic chemotherapy induced pancytopenia; E66.2 Morbid (severe) obesity with alveolar hypoventilation; Z68.42 Body mass index [BMI] 45.0-49.9, adult; I82.442 Acute embolism and thrombosis of left tibial vein; I82.411 Acute embolism and thrombosis of right femoral vein; I82.431 Acute embolism and thrombosis of right popliteal vein; L03.116 Cellulitis of left lower limb; L03.115 Cellulitis of right lower limb; N18.9 Chronic kidney disease, unspecified; E83.42 Hypomagnesemia; F41.9 Anxiety disorder, unspecified; F32.9 Major depressive disorder, single episode, unspecified; I42.9 Cardiomyopathy, unspecified; C50.911 Malignant neoplasm of unspecified site of right female breast; B35.1 Tinea unguium; E11.9 Type 2 diabetes mellitus without complications; E87.6 Hypokalemia; H02.402 Unspecified ptosis of left eyelid; Z91.14 Patient's other noncompliance with medication regimen
CPT/HCPCS: 36415; 71045; 76700; 76775; 80048; 80053; 80061; 80162; 80307; 82550; 82553; 82962; 83735; 83880; 84100; 84155; 84165; 84484; 84702; 85025; 85610; 85730; 93005; 93970; 94640; 94664; 99285-25